=== PATIENT | female | born 1990 | race Caucasian/White ===

== ENCOUNTER 2016-05-31 08:50 | Emergency (ER) | payer BC ==
[2016-05-31 08:57] VITALS: BP 114/69
--- NOTE | 2016-05-31 09:22 | UC ---
Respiratory Complaint HPI - History of Current Complaint Chief Complaint: UCRespiratory Stated Complaint: COLD COMPLAINT Time Seen by Provider: 05/31/16 09:00 Hx Obtained From: Patient Hx Last Menstrual Period: 10/03/14 ?: Yes Onset/Duration: Gradual Onset, Lasting Weeks Severity Initially: Mild Severity Currently: Mild Character: Cough: Productive Aggravating Factors: Nothing Alleviating Factors: Nothing Associated Signs And Symptoms: Positive: Nasal Congestion, Sinus Discomfort. Negative: Dyspnea, Fever - had a fever a week ago of 101, none since., Chills, Wheezing, Hemoptysis, Dizziness - Allergies/Home Medications Allergies/Adverse Reactions: Allergies Allergy/AdvReac Type Severity Reaction Status Date / Time Azithromycin [From Zithromax] Allergy Severe Hives Verified 10/11/14 21:39 Erythromycin Allergy Severe Hives Verified 10/11/14 21:39 Home Medications: Home Medications Vitamin [Calna] 1 tab PO 05/31/16 [History] PMH/Surg Hx/FS Hx/Imm Hx Previously Healthy: Yes Endocrine History Of: Denies: Diabetes, Thyroid Disease Cardiovascular History Of: Denies: Cardiac Disorders, Hypertension Respiratory History Of: Denies: COPD, Asthma GI/ History Of: Denies: Ulcer - Surgical History Surgical History: Yes Surgery Procedure, Year, and Place: leep procedure 2013 - Social History Alcohol Use: None Substance Use Type: None Smoking Status (MU): Never Smoked Tobacco Review of Systems Constitutional: Fatigue Skin: Negative Eyes: Negative ENT: Nasal Discharge Respiratory: Cough Cardiovascular: Negative Gastrointestinal: Negative Genitourinary: Negative Motor: Negative Neurovascular: Negative Musculoskeletal: Negative Neurological: Negative Psychological: Negative All Other Systems Reviewed And Are Negative: Yes Physical Exam Triage Information Reviewed: Yes Appearance: Well-Appearing, No Pain Distress, Well-Nourished Vital Signs: Initial Vital Signs Temp 97.3 F 05/31/16 08:53 Pulse 86 05/31/16 08:53 Resp 18 05/31/16 08:53 BP 114/69 05/31/16 08:53 Pulse Ox 100 05/31/16 08:53 Vital Signs Reviewed: Yes Eye Exam: Normal Eyes: Positive: Conjunctiva Clear ENT Exam: Normal ENT: Positive: Pharynx normal, Nasal congestion. Negative: Tonsillar swelling, Tonsillar exudate Neck exam: Normal Neck: Positive: Supple, Nontender Respiratory Exam: Normal Respiratory: Positive: Chest non-tender, Lungs clear, Normal breath sounds, No respiratory distress Cardiovascular Exam: Normal Cardiovascular: Positive: RRR, No Murmur Musculoskeletal Exam: Normal Neurological Exam: Normal Neurological: Positive: Alert, Muscle Tone Normal Psychological Exam: Normal Skin Exam: Normal UC Diagnostic Evaluation - Laboratory O2 Sat by Pulse Oximetry: 100 Respiratory Course/Dx - Differential Dx/Diagnosis Provider Diagnoses: URI, likely viral Discharge - Discharge Plan Condition: Stable Disposition: HOME Patient Education Materials: Cold Symptoms (ED), Upper Respiratory Infection ( ED) Print Language: WOLOF Referrals: Anna Snider MD [Primary Care Provider] - Additional Instructions: This is most likely a viral upper respiratory infection. May use saline nasal spray for nasal congestion and Mucinex. Drink plenty of fluids. Monitor for any fevers and call your primary care provider or return here if experiencing fevers , wheezing or shortness of breath.
== END 2016-05-31 09:20 | disposition home or self-care (01) ==
LOC: UCEAST 08:50
DX: J06.9 Acute upper respiratory infection, unspecified (principal); Z88.1 Allergy status to other antibiotic agents
CPT/HCPCS: 99211; G0463

== ENCOUNTER 2016-06-20 09:19 | Emergency (ER) | payer BC ==
--- NOTE | 2016-06-20 11:00 | UC ---
Abdominal Pain Female HPI - HPI Summary HPI Summary: TRIPPED AND FELL DOWN 5 STAIRS THIS MORNING. WAS CARRYING A BOX OF PAPERWORK ( ABOUT 5 LBS) WHICH LANDED ON HER ABDOMEN. PT IS 14 WEEKS AND HAS HAD SOME MILD LLQ PAIN SINCE THE FALL SO IS CONCERNED. NO VAGINAL BLEEDING. NO LOSS OF FLUID. WAS FOLLOWING WITH [facility] IN [place] BUT PHYSICIAN LEFT THE PRACTICE. PT WAS REFERRED TO ALTERNATE OB PROVIDERS IN [place] BUT HAS NOT YET ESTABLISHED. LAST ON APPT WAS 06/10/16. - History of Current Complaint Chief Complaint: UCGI Stated Complaint: ABDOMINAL PAIN Time Seen by Provider: 06/20/16 10:46 Hx Obtained From: Patient Hx Last Menstrual Period: 10/03/14 Onset/Duration: Sudden Onset, Lasting Hours, Still Present Timing: Constant Severity Initially: Mild Severity Currently: Mild Pain Intensity: 3 Pain Scale Used: 0-10 Numeric Location: Discrete At: LLQ Radiates: No Character: Aching Aggravating Factor(s): Nothing Alleviating Factor(s): Nothing Associated Signs and Symptoms: Negative: Back Pain, Blood in Stool, Urinary Symptoms, Vaginal Bleeding, Vaginal Discharge, Nausea Allergies/Adverse Reactions: Allergies Allergy/AdvReac Type Severity Reaction Status Date / Time Azithromycin [From Zithromax] Allergy Severe Hives Verified 06/20/16 10:01 Erythromycin Allergy Severe Hives Verified 06/20/16 10:01 PMH/Surg Hx/FS Hx/Imm Hx Previously Healthy: Yes Endocrine History Of: Denies: Diabetes, Thyroid Disease Cardiovascular History Of: Denies: Cardiac Disorders, Hypertension Respiratory History Of: Denies: COPD, Asthma GI/ History Of: Denies: Ulcer - Surgical History Surgical History: Yes Surgery Procedure, Year, and Place: leep procedure 2014 - Social History Alcohol Use: None Substance Use Type: None Smoking Status (MU): Never Smoked Tobacco Review of Systems Constitutional: Negative Skin: Negative Respiratory: Negative Cardiovascular: Negative Gastrointestinal: Abdominal Pain Genitourinary: Negative All Other Systems Reviewed And Are Negative: Yes Physical Exam Triage Information Reviewed: Yes Appearance: Well-Appearing, No Pain Distress, Well-Nourished Vital Signs: Initial Vital Signs Temp 98.3 F 06/20/16 09:55 Pulse 94 06/20/16 09:55 Resp 16 06/20/16 09:55 BP 99/68 06/20/16 09:55 Pulse Ox 100 06/20/16 09:55 Vital Signs Reviewed: Yes Eyes: Positive: Conjunctiva Clear ENT: Positive: Hearing grossly normal Neck: Positive: Supple Respiratory: Positive: No respiratory distress, No accessory muscle use Cardiovascular: Positive: Pulses Normal Abdomen Description: Positive: Soft, Other: - MILDLY TTP LLQ. NO REBOUND OR RIGIDITY. FHTS 140S. Negative: Distended, Guarding Musculoskeletal: Positive: No Edema Neurological: Positive: Alert Psychological: Positive: Age Appropriate Behavior Skin: Negative: rashes Diagnostics - Radiology LIMITED OB US Xray Interpretation: Positive (See Comments) - 15 WK IUP. NO ABNORMALITIES NOTED Radiology Interpretation Completed By: Radiologist Abd Pain Female Course/Dx - Course Course Of Treatment: NORMAL MVMT AND CARDIAC ACTIVITY ON US. NO SIGN OF ABRUPTION OR OTHER PLACENTAL ABNORMALITY. F/U OB. - Differential Dx/Diagnosis Provider Diagnoses: ABDOMINAL PAIN IN Discharge - Discharge Plan Condition: Stable Disposition: HOME Patient Education Materials: Abdominal Pain in (ED) Referrals: Anna Snider MD [Primary Care Provider] - If Needed Additional Instructions: ULTRASOUND SHOWS NORMAL 14WEEK ON MY INITIAL INTERPRETATION. WE WILL CALL YOU IF RADIOLOGY READ DIFFERS. FOLLOW-UP WITH THE [facility] YOUR CHOICE. IF YOU DECIDE TO GO TO [facility] THEIR PHONE NUMBER IS [phone]. GO TO THE ER IF YOU HAVE ANY VAGINAL BLEEDING, LOSS OF FLUID, WORSENING PAIN/ ABDOMINAL CRAMPING, FEVER OR ANY OTHER CONCERNING SYMPTOMS.
[2016-06-20 11:36] VITALS: BP 108/68
--- NOTE | 2016-06-20 12:34 | RAD ---
Indication: 14 weeks 5 days estimated gestation. Fall down stairs this morning. Comparison: No relevant prior exams available on the [facility]. Technique: Transabdominal obstetrical ultrasound. REPORT: Single intrauterine fetus is in breech presentation. Spontaneous motion and cardiac activity present. heart rate: 133 bpm. The volume of amniotic fluid is qualitatively normal. The cervical length is 3.6 cm. Posterior placenta without evidence for encroachment on the internal os. No evidence for placental abruption. Mean BPD: 2.9 cm corresponding with 15 weeks 2 days Mean HC: 10.44 cm corresponding with 15 weeks 0 days Mean AC: 8.63 corresponding with 15 weeks 0 days Mean FL: 1.41 cm corresponding with 14 weeks 2 days Composite gestational age: 15 weeks 0 days weight: 101 g +/- 15 g The anatomic survey is limited due to early gestational age without gross abnormality. Grossly unremarkable 4 chamber heart documented on cine loop. IMPRESSION: Single intrauterine gestation with normal movement and cardiac activity with estimated gestational age of 15 weeks 0 days based on this exam. Corresponding AUA RAGHU December 12, 2016. No evidence for placental abruption. Routine follow-up complete anatomic survey suggested.
== END 2016-06-20 12:35 | disposition home or self-care (01) ==
LOC: UCEAST 09:19
DX: O26.892 Other specified pregnancy related conditions, second trimester (principal); R10.32 Left lower quadrant pain; Z88.3 Allergy status to other anti-infective agents
CPT/HCPCS: 76815; 99212; G0463